=== PATIENT | male | born 1935 | race Caucasian/White ===

== ENCOUNTER 2018-07-30 11:55 | Emergency (ER) | payer OTHER, BC ==
[~2018-07-30] VITALS: Ht 160 cm; Wt 6.8 kg
[2018-07-30 12:05] VITALS: Ht 160 cm; Wt 6.8 kg
[2018-07-30 14:07] LABS: BASOPHIL % 0.4 % (0-2); PLATELET COUNT 231 x10^3mcL (130-400)
[2018-07-30 14:21] LABS: CALCIUM 10.4 mg/dL (8.5-10.1); CARBON DIOXIDE 27.7 mmol/L (21-32); CHLORIDE SERUM 103 mmol/L (98-107); GLUCOSE SERUM 108 mg/dL (74-106); POTASSIUM SERUM 4.8 mmol/L (3.5-5.1); SODIUM SERUM 137 mmol/L (136-145)
[2018-07-30 14:25] LABS: ALBUMIN 4.3 g/dL (3.4-5.0); ALKALINE PHOSPHATASE 84 U/L (46-116); ALT/SGPT 34 U/L (16-63); AST/SGOT 26 U/L (15-37); BILIRUBIN TOTAL 0.4 mg/dL (0.20-1.00); LIPASE 184 IU/L (73-393); TOTAL PROTEIN, SERUM 8.2 g/dL (6.4-8.2)
[2018-07-30 16:06] LABS: UA SPECIFIC GRAVITY 1.025 (1.005-1.035); microscopic required? YES; urine erythrocyte NEGATIVE (NEGATIVE)
[2018-07-30 18:49] VITALS: BP 192/94
== END 2018-07-30 18:49 | disposition home or self-care (01) ==
LOC: ED 11:55
PROVIDERS: Emergency Medicine
DX: M54.5 Low back pain (principal); I11.0 Hypertensive heart disease with heart failure; I50.9 Heart failure, unspecified; Z98.890 Other specified postprocedural states
CPT/HCPCS: 36415

== ENCOUNTER 2018-08-12 17:15 | Inpatient (IN) | payer OTHER, BC ==
[~2018-08-12] VITALS: Ht 152.4 cm; Wt 67.2 kg
[2018-08-12 18:43] LABS: BASOPHIL % 0.3 % (0-2); PLATELET COUNT 180 x10^3mcL (130-400); RED CELL DISTRIBUTION WIDTH 13.9 % (11.5-14.5)
[2018-08-12 18:58] LABS: CALCIUM 10.2 mg/dL (8.5-10.1); CARBON DIOXIDE 24.8 mmol/L (21-32); CHLORIDE SERUM 105 mmol/L (98-107); GLUCOSE SERUM 194 mg/dL (74-106); POTASSIUM SERUM 3.8 mmol/L (3.5-5.1); SODIUM SERUM 138 mmol/L (136-145)
[2018-08-12 19:10] LABS: ALBUMIN 3.5 g/dL (3.4-5.0); ALKALINE PHOSPHATASE 82 U/L (46-116); ALT/SGPT 28 U/L (16-63); AMYLASE 119 U/L (25-115); AST/SGOT 24 U/L (15-37); BILIRUBIN TOTAL 0.3 mg/dL (0.20-1.00); CHOLESTEROL 140 mg/dL (<200); HDL CHOLESTEROL 31 mg/dL (40-60); LIPASE 133 IU/L (73-393); MAGNESIUM 2.1 mg/dL (1.8-2.4); T4(THYROXINE) 8.5 ug/dL (4.7-13.3)
[2018-08-12 19:43] LABS: microscopic required? NO
[2018-08-12 19:52] LABS: UA SPECIFIC GRAVITY 1.015 (1.005-1.035); urine erythrocyte NEGATIVE (NEGATIVE)
[2018-08-12] MEDS ORDERED: COUMADIN7.5 MG PO (19:57)
[2018-08-12] MEDS ORDERED: GLIMEPIRIDE2 M1 PO (19:57)
[2018-08-12] MEDS ORDERED: DIGOXIN0.25 M1 PO (19:57)
[2018-08-12] MEDS ORDERED: METOPROLOL TAR100 MG PO (19:58)
[2018-08-12] MEDS ORDERED: CYCLOBENZAPRINE5 MG PO (19:58)
[2018-08-12] MEDS ORDERED: TRAMADOL HCL50 MG PO (19:58)
[2018-08-12] MEDS ORDERED: LISINOPRIL40 MG PO (19:59)
[2018-08-12] MEDS ORDERED: RANITIDINE HCL150 M1 PO (19:59)
[2018-08-12] MEDS ORDERED: METFORMIN HYDR500 M1 PO (20:00)
[2018-08-12] MEDS ORDERED: NAPROXEN375 MG PO (20:00)
[2018-08-12] MEDS ORDERED: SIMVASTATIN20 M1 PO (20:00)
[2018-08-12 20:14] LABS: AMPHETAMINE QUAL UR NONE DETECTED (See below)
[2018-08-12 21:02] VITALS: BP 117/90
[2018-08-12 21:05] VITALS: Ht 152.4 cm; Wt 67.2 kg
[2018-08-13] VITALS (7 sets, daily range): BP systolic 122–166; BP diastolic 69–108
[2018-08-13 06:06] LABS: PLATELET COUNT 188 x10^3mcL (130-400); RED CELL DISTRIBUTION WIDTH 14.4 % (11.5-14.5)
[2018-08-13 06:29] LABS: BASOPHIL % 0 % (0-2); CALCIUM 10.9 mg/dL (8.5-10.1); CHLORIDE SERUM 106 mmol/L (98-107); GLUCOSE SERUM 163 mg/dL (74-106); MAGNESIUM 2.3 mg/dL (1.8-2.4); PHOSPHOROUS 3.4 mg/dL (2.5-4.9); POTASSIUM SERUM 4.5 mmol/L (3.5-5.1); SODIUM SERUM 142 mmol/L (136-145)
[2018-08-14 05:30] VITALS: BP 156/96
[2018-08-14 06:07] LABS: BASOPHIL % 0.3 % (0-2); PLATELET COUNT 180 x10^3mcL (130-400); RED CELL DISTRIBUTION WIDTH 13.9 % (11.5-14.5)
[2018-08-14 06:39] LABS: CALCIUM 10.7 mg/dL (8.5-10.1); CARBON DIOXIDE 27.6 mmol/L (21-32); CHLORIDE SERUM 104 mmol/L (98-107); CREATININE SERUM 0.9 mg/dL (0.7-1.3); GLUCOSE SERUM 121 mg/dL (74-106); POTASSIUM SERUM 4.5 mmol/L (3.5-5.1); SODIUM SERUM 141 mmol/L (136-145)
[2018-08-14 09:15] VITALS: BP 124/90
[2018-08-14 14:30] VITALS: BP 150/88
[2018-08-14 18:25] VITALS: BP 155/90
[2018-08-14 20:33] VITALS: BP 145/88
[2018-08-15 05:24] VITALS: BP 152/98
[2018-08-15 05:59] LABS: BASOPHIL % 0.3 % (0-2); PLATELET COUNT 200 x10^3mcL (130-400); RED CELL DISTRIBUTION WIDTH 13.7 % (11.5-14.5)
[2018-08-15 06:24] LABS: CALCIUM 10.6 mg/dL (8.5-10.1); CARBON DIOXIDE 28.5 mmol/L (21-32); CHLORIDE SERUM 102 mmol/L (98-107); CREATININE SERUM 0.9 mg/dL (0.7-1.3); GLUCOSE SERUM 121 mg/dL (74-106); POTASSIUM SERUM 4.5 mmol/L (3.5-5.1); SODIUM SERUM 139 mmol/L (136-145)
[2018-08-15 06:56] VITALS: BP 163/85
[2018-08-15 07:13] VITALS: BP 106/70; BP 157/92
[2018-08-15] MEDS ORDERED: NORCO1 TA1 PO (11:23)
[2018-08-15] MEDS ORDERED: NOR5 PO (11:24)
[2018-08-15 12:30] VITALS: BP 142/80
[2018-08-15 14:11] VITALS: BP 142/80
== END 2018-08-15 16:54 | DRG 551 ==
LOC: ED 17:15 → DU 19:40
PROVIDERS: Emergency Medicine; ADMIT Internal Medicine
DX: M51.36 Other intervertebral disc degeneration, lumbar region (principal); N17.0 Acute kidney failure with tubular necrosis; I48.91 Unspecified atrial fibrillation; E83.52 Hypercalcemia; I16.0 Hypertensive urgency; E11.65 Type 2 diabetes mellitus with hyperglycemia; G89.29 Other chronic pain; L40.9 Psoriasis, unspecified; Z68.29 Body mass index [BMI] 29.0-29.9, adult; Z87.891 Personal history of nicotine dependence; Z95.1 Presence of aortocoronary bypass graft; Z79.01 Long term (current) use of anticoagulants; Z79.84 Long term (current) use of oral hypoglycemic drugs; I25.10 Atherosclerotic heart disease of native coronary artery without angina pectoris
CPT/HCPCS: 82962; 83880; 97112-GP; 97116-GP; 97530-GP; J2270; J3490; Q0092; Q9967